=== PATIENT | female | born 1995 ===

== ENCOUNTER 2018-05-28 15:35 | Emergency (ER) | payer SELFPAY ==
[~2018-05-28] VITALS: Ht 165.1 cm; Wt 68.6 kg
[2018-05-28 15:39] VITALS: BP 135/86; PULSE 95; RESP 20; Ht 165.1 cm; Wt 68.6 kg
== END 2018-05-28 19:17 | disposition left against medical advice (07) ==
LOC: FTE 15:35
DX: Z53.21 Procedure and treatment not carried out due to patient leaving prior to being seen by health care provider (principal)